=== PATIENT | female | born 1985 | race Caucasian/White ===

== ENCOUNTER 2017-04-28 17:12 | Emergency (ER) | payer BC ==
[2017-04-28 17:47] LABS: % IMMATURE GRANULYOCYTES 0.4 % (0.0-1.1); ABSOLUTE IMMATURE GRANULOCYTES 0.03 10^3/uL (0.00-0.10); ADD DIFF? NO; ADD MORPH? NO; ADD SCAN? NO; ATYPICAL LYMPHOCYTE FLAG 20 (0-99); FRAGMENT RBC FLAG 0 (0-99); HEMATOCRIT 40.3 % (38.0-47.0); HEMOGLOBIN 13.6 g/dL (12.6-16.3); LEFT SHIFT FLG 0 (0-99); LIPEMIA HEMOLYSIS FLAG 80 (0-99); MEAN CELL HEMOGLOBIN 28.9 pg (27.9-34.1); MEAN CELL HEMOGLOBIN CONCENTR. 33.7 g/dL (32.4-36.7); MEAN CELL VOLUME 85.6 fL (81.5-99.8); MEAN PLATELET VOLUME 9.5 fL (8.7-11.7); PLATELET CLUMPS FLAG 0 (0-99); PLATELET COUNT 404 10^3/uL (150-400); RED BLOOD CELL COUNT 4.71 10^6/uL (4.18-5.33); RED CELL DISTRIBUTION WIDTH 12.7 % (11.5-15.2)
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
[2017-04-28 18:04] LABS: ANION GAP 14 mEq/L (8-16); CALCIUM 9.9 mg/dL (8.5-10.4); CARBON DIOXIDE 22 mEq/l (22-31); CHLORIDE 107 mEq/L (97-110); CREATININE 0.7 mg/dL (0.6-1.0); ETHANOL SERUM < 10 mg/dL (0-10); GLOMERULAR FILTRATION RATE > 60; GLUCOSE 99 mg/dL (70-100); SODIUM 143 mEq/L (134-144)
[2017-04-28] MEDS ORDERED: LORazepam 1 MG TAB PO ONE (19:16)
[2017-04-29] MEDS ORDERED: LORazepam 1 MG TAB ONE (02:06)
[2017-04-29] MEDS ORDERED: ONDANSETRON DISINTEGRATING 4 MG TAB ONE ×3 (02:08→07:26)
[2017-04-29] MEDS ORDERED: LORazepam 1 MG TAB PO ONE ×2 (02:14→07:21)
[2017-04-29] MEDS ORDERED: ONDANSETRON DISINTEGRATING 4 MG TAB PO ONE (02:14)
[2017-04-29] MEDS ORDERED: NICOTINE 21 MG/24 HR PATCH TD ONE (08:09)
[2017-04-29] MEDS ORDERED: clonazePAM 1 MG TAB PO ONE (08:09)
[2017-04-29] MEDS ORDERED: GABAPENTIN 300 MG CAP PO ONE (08:11)
[2017-04-29] MEDS ORDERED: HALOPERIDOL LACT 5 MG/ML INJ IM ONE (08:34)
[2017-04-29] MEDS ORDERED: LORazepam 2 MG/ML INJ IM ONE (08:36)
[2017-04-29 13:45] VITALS: BP 116/64; PULSE 86; RESP 18; TEMP 98.2; O2SAT 96
== END 2017-04-29 13:44 | disposition home or self-care (01) ==
LOC: EDUNIT#
DX: F32.9 Major depressive disorder, single episode, unspecified (principal); J45.909 Unspecified asthma, uncomplicated; F17.200 Nicotine dependence, unspecified, uncomplicated
CPT/HCPCS: 80305; G0480; J2060